=== PATIENT | female | born 1955 | race Two or more races ===

== ENCOUNTER 2022-12-18 11:04 | Inpatient (IN) | payer OTHER ==
[~2022-12-18] VITALS: Ht 162.6 cm; Wt 42.2 kg
== END 2022-12-26 11:21 | disposition home or self-care (01) | DRG 330 ==
LOC: SURH 12-23 08:35 → O/R 12-23 08:35 → SURG 12-23 12:15 → SURH 12-23 16:11
PROVIDERS: ADMIT Colon & Rectal Surgery; ATTEND Colon & Rectal Surgery
PROC: 0D1B0Z4 Bypass Ileum to Cutaneous, Open Approach (ICD-10-PCS; principal; 2022-12-23 14:45)
DX: C18.4 Malignant neoplasm of transverse colon (principal); K92.1 Melena

== ENCOUNTER 2024-04-19 07:15 | Day surgery (SDC) | payer OTHER ==
[2024-04-19] MEDS ORDERED: fentaNYL CITRATE 50 MCG/ML AMPUL IV PUSH ONE (11:30)
[2024-04-19] MEDS ORDERED: MIDAZOLAM HCL 2 MG/2 ML VIAL IV ONE (11:30)
[2024-04-19] MEDS ORDERED: DIPHENHYDRAMINE HCL 50 MG/ML VIAL 1ML IV ONE (11:30)
== END 2024-04-19 13:40 | disposition home or self-care (01) ==
LOC: AMB-ENDOS 07:15
PROVIDERS: ATTEND Colon & Rectal Surgery
DX: D12.3 Benign neoplasm of transverse colon (principal); K63.5 Polyp of colon; K57.30 Diverticulosis of large intestine without perforation or abscess without bleeding; Z85.038 Personal history of other malignant neoplasm of large intestine